=== PATIENT | male | born 1960 | race Caucasian/White ===

== ENCOUNTER 2018-01-01 16:31 | Emergency (ER) | payer OTHER ==
[~2018-01-01] VITALS: Ht 167.6 cm; Wt 99.8 kg
[~2018-01-01 16:31] MED LIST: ANAPROX DS550 MG PO; FENOGLIDE40 MG PO; MOTRIN600 MG PO; NEXIUM40 MG PO; ZITHROMAX Z PA250 MG PO
[2018-01-01] MEDS ORDERED: PROAIR HFA8.5 GM INH (17:08)
[2018-01-01] MEDS ORDERED: ADV 500/50 INH (17:08)
[2018-01-01] MEDS ORDERED: SPIRIVA -- 3018 MCG INH (17:08)
[2018-01-01] MEDS ORDERED: BENZONATATE200 MG PO (17:08)
[2018-01-01] MEDS ORDERED: DOXYCYCLINE100 M3 PO (17:09)
[2018-01-01 17:18] LABS: BASO # 0.1 10*3/uL (0.0-0.1); BASO % 0.5 % (0.0-1.0); EOS # 0.5 10*3/uL (0.0-0.4); EOS % 4.2 % (1.0-4.0); HEMATOCRIT 43.5 % (42.0-52.0); HEMOGLOBIN 13.7 g/dl (14.0-18.0); LYMPH # 1.9 10*3/uL (1.3-4.4); LYMPH % 14.8 % (27.0-41.0); MEAN CELL VOLUME 90.1 fl (80.0-94.0); MEAN CORPUSCULAR HGB 28.4 pg (27.0-31.0); MEAN CORPUSCULAR HGB CONC 31.5 g/dl (33.0-37.0); MEAN PLATELET VOLUME 10.1 fl (9.6-12.3); MONO # 1.1 10*3/uL (0.1-1.0); MONO % 8.6 % (3.0-9.0); NEUT # 9.1 10*3/uL (2.3-7.9); NEUT % 71.4 % (47.0-73.0); PLATELET COUNT AUTOMATED 257 10*3/uL (130-400); RED BLOOD COUNT 4.83 10*6/uL (4.50-5.90); RED CELL DISTRI WIDTH 14.1 % (0-14.5); WHITE BLOOD COUNT 12.8 10*3/uL (4.8-10.8)
[2018-01-01 17:34] LABS: ALBUMIN 3.7 gm/dl (3.1-4.5); ALKALINE PHOSPHATASE 109 U/L (45-117); BUN 8 mg/dl (7-24); CHLORIDE 109 mmol/L (98-107); CREATININE 0.94 mg/dL (0.70-1.30); POTASSIUM 4.3 mmol/L (3.5-5.1); SGOT/AST 23 IU/L (3-35); SGPT/ALT 55 U/L (12-78); SODIUM 144 mmol/L (136-145); TOTAL PROTEIN 7.4 gm/dL (6.4-8.2)
[2018-01-01] MEDS ORDERED: PREDNISONE20 M1 PO (18:15)
== END 2018-01-01 18:50 | disposition home or self-care (01) ==
LOC: ED 16:31
PROVIDERS: Emergency Medicine
DX: J44.1 Chronic obstructive pulmonary disease with (acute) exacerbation (principal); Z79.899 Other long term (current) drug therapy

== ENCOUNTER 2018-08-03 05:30 | Emergency (ER) | payer OTHER ==
[~2018-08-03] VITALS: Ht 167.6 cm; Wt 99.8 kg
--- NOTE | ~2018-08-03 | EKG ---
[place], [place] ELECTROCARDIOGRAM REPORT NAME: FORTUNATO FRANZ UNIT #: [id number] ROOM: DOCTOR: EJ DRAFT REPORT BIRTHDATE: [birth year] [facility] Test Date: 2018-08-03 Test Time: 05:53:12 Pat Name: FORTUNATO FRANZ Department: Room: Gender: [place]: : 1960 Requested By: BO CATALAN Order Number: [id number] Reading MD: Clarisse Echevarria MD Measurements Intervals [place] Rate: 93 P: 61 SD: 122 QRS: 77 QRSD: 87 T: 32 QT: 325 QTc: 405 Interpretive Statements Sinus rhythm Borderline low voltage, extremity leads No previous ECG available for comparison Electronically Signed On 08-04-2018 6:53:00 PDT by Clarisse Echevarria MD CM:EKGRPT:ELECTROCARDIOGRAM REPORT [id number] BO SCRUGGS DRAFT REPORT BO CATALAN DO
[~2018-08-03 05:30] MED LIST changes: +ADV 500/50 INH; +BENZONATATE200 MG PO; +DOXYCYCLINE100 M3 PO; +PREDNISONE20 M1 PO; +PROAIR HFA8.5 GM INH; +SPIRIVA -- 3018 MCG INH
[2018-08-03 06:24] LABS: HEMATOCRIT 39.2 % (42.0-52.0); HEMOGLOBIN 12.9 g/dl (14.0-18.0); MEAN CELL VOLUME 87.9 fl (80.0-94.0); MEAN CORPUSCULAR HGB 28.9 pg (27.0-31.0); MEAN CORPUSCULAR HGB CONC 32.9 g/dl (33.0-37.0); MEAN PLATELET VOLUME 10.7 fl (9.6-12.3); PLATELET COUNT AUTOMATED 272 10*3/uL (130-400); RED BLOOD COUNT 4.46 10*6/uL (4.50-5.90); RED CELL DISTRI WIDTH 14.6 % (0-14.5); WHITE BLOOD COUNT 19.2 10*3/uL (4.8-10.8)
[2018-08-03 06:42] LABS: ALBUMIN 3.3 gm/dl (3.1-4.5); ALKALINE PHOSPHATASE 112 U/L (45-117); BUN 10 mg/dl (7-24); CHLORIDE 107 mmol/L (98-107); PLATELET SUFFICIENCY NORMAL (NORMAL); POTASSIUM 3.8 mmol/L (3.5-5.1); SGOT/AST 11 IU/L (3-35); SGPT/ALT 30 U/L (12-78); SODIUM 139 mmol/L (136-145); TOTAL CELLS COUNTED 100 #CELLS; TROPONIN I < 0.015 ng/ml (<0.045)
[2018-08-03] MEDS ORDERED: LEVAQUIN750 M1 PO (06:50)
[2018-08-03] MEDS ORDERED: PREDNISONE50 MG PO (06:50)
== END 2018-08-03 07:20 | disposition home or self-care (01) ==
LOC: ED 05:30
PROVIDERS: Student in an Organized Health Care Education/Training Program
DX: J44.1 Chronic obstructive pulmonary disease with (acute) exacerbation (principal); Z79.899 Other long term (current) drug therapy

== ENCOUNTER 2020-06-12 18:24 | Emergency (ER) | payer OTHER ==
[~2020-06-12] VITALS: Ht 170.1 cm; Wt 104.3 kg
[~2020-06-12 18:24] MED LIST changes: +LEVAQUIN750 M1 PO; +PREDNISONE50 MG PO
[2020-06-12 19:25] LABS: BASO # 0.1 10*3/uL (0.0-0.1); BASO % 0.5 % (0.0-1.0); EOS # 0.4 10*3/uL (0.0-0.4); EOS % 2.9 % (1.0-4.0); HEMATOCRIT 43.4 % (42.0-52.0); LYMPH # 2.2 10*3/uL (1.3-4.4); LYMPH % 16.7 % (27.0-41.0); MEAN CELL VOLUME 91.4 fl (80.0-94.0); MEAN CORPUSCULAR HGB 29.9 pg (27.0-31.0); MEAN CORPUSCULAR HGB CONC 32.7 g/dl (33.0-37.0); MEAN PLATELET VOLUME 10.5 fl (9.6-12.3); MONO # 1.1 10*3/uL (0.1-1.0); MONO % 8.2 % (3.0-9.0); NEUT # 9.4 10*3/uL (2.3-7.9); NEUT % 70.4 % (47.0-73.0); PLATELET COUNT AUTOMATED 270 10*3/uL (130-400); RED BLOOD COUNT 4.75 10*6/uL (4.50-5.90); RED CELL DISTRI WIDTH 13.4 % (0-14.5); WHITE BLOOD COUNT 13.4 10*3/uL (4.8-10.8)
[2020-06-12 19:48] LABS: ALBUMIN 3.7 gm/dl (3.1-4.5); ALKALINE PHOSPHATASE 108 U/L (45-117); BUN 16 mg/dl (7-24); CHLORIDE 107 mmol/L (98-107); CREATININE 1.03 mg/dL (0.70-1.30); POTASSIUM 3.8 mmol/L (3.5-5.1); SGOT/AST 22 IU/L (3-35); SGPT/ALT 60 U/L (12-78); SODIUM 140 mmol/L (136-145); TOTAL PROTEIN 7.4 gm/dL (6.4-8.2)
[2020-06-12 19:55] LABS: TROPONIN I < 0.015 ng/ml (<0.045)
[2020-06-12] MEDS ORDERED: Ipratropium Brom3 ML INH (23:29)
[2020-06-12] MEDS ORDERED: AUGMENTIN 875875 MG PO (23:29)
[2020-06-12] MEDS ORDERED: MEDROL DOSEPAK4 MG PO (23:29)
== END 2020-06-12 23:39 | disposition home or self-care (01) ==
LOC: ED 18:24
PROVIDERS: Emergency Medicine
DX: J44.1 Chronic obstructive pulmonary disease with (acute) exacerbation (principal); J32.9 Chronic sinusitis, unspecified; K21.9 Gastro-esophageal reflux disease without esophagitis; E78.00 Pure hypercholesterolemia, unspecified; Z79.899 Other long term (current) drug therapy